=== PATIENT | female | born 1975 | race African-American/Black ===

== ENCOUNTER 2018-12-19 22:22 | Emergency (ER) | payer OTHER ==
[2018-12-20] MEDS: HYDROCODONE/APAP (5/325) TAB PO (00:19)
== END 2018-12-20 02:28 | disposition home or self-care (01) ==
LOC: FTE 22:22
DX: M54.9 Dorsalgia, unspecified (principal); M54.32 Sciatica, left side
CPT/HCPCS: 99283; Z7502